=== PATIENT | female | born 1990 | race American Indian/Alaskan Native ===

== ENCOUNTER 2021-01-03 11:59 | Outpatient (CLI) | payer BC ==
[2021-01-04 13:26] LABS: SARS-CoV-2 PCR by NAA Not Detected (NotDetected)
== END 2021-01-03 12:00 | disposition home or self-care (01) ==
LOC: CSHLAB 11:59
PROVIDERS: ATTEND Obstetrics & Gynecology
DX: Z01.812 Encounter for preprocedural laboratory examination (principal); Z20.822 Contact with and (suspected) exposure to COVID-19
CPT/HCPCS: U0003; U0005

== ENCOUNTER 2021-01-04 16:14 | Inpatient (IN) | payer BC ==
[2021-01-05 11:29] VITALS: BMI 25.7
[2021-01-05 12:49] LABS: Hemoglobin 13.6 g/dL (12.0-15.5); Mean Corpuscular HGB CONC 34.2 g/dL (32.0-36.0); Mean Corpuscular Hemoglobin 28.8 pg (27.0-33.0); Mean Corpuscular Volume 84.1 fl (81.6-98.3); Mean Platelet Volume 10.7 fl (7.4-10.4); Platelet Count 259 10x3/uL (150-450); RBC Distribution Width 13.2 % (11.5-14.5); Red Blood Cell (RBC) Count 4.73 10x6/uL (3.90-5.03); White Blood Cell (WBC) Count 8.7 10x3/uL (3.5-10.5)
[2021-01-05 13:28] LABS: Hep B Surf Ag Non-Reactive S/CO (NonReactive); Syphilis Antibody Nonreactive (Nonreactive); Syphilis Antibody Index 0.04 S/CO (<1.00 Non-Reactive)
[2021-01-05] MEDS ORDERED: Misoprostol 100 MCG TAB ONE (13:31)
[2021-01-05 13:36] LABS: HBSAg Index 0.17 S/CO (0-0.99)
[2021-01-06] MEDS ORDERED: Fentanyl 2 mcg/Bup 0.1% Cadd 100 ML ONE ×2 (00:11→08:04)
[2021-01-06] MEDS ORDERED: Lactated Ringer's 500 ML IV PRN (01:15)
[2021-01-06] MEDS ORDERED: Acetaminophen 325 MG TAB PO PRN (01:15)
[2021-01-06] MEDS ORDERED: Fentanyl 2 mcg/Bupivacaine 0.1% Cassette 100 ML EPIDURAL SCH (01:15)
[2021-01-06] MEDS ORDERED: Communication Order-Pharmacy FS SCH (01:15)
[2021-01-06] MEDS ORDERED: Hydrocerin (Eucerin) Cream 120 gm Jar TOP PRN (01:15)
[2021-01-06] MEDS ORDERED: Promethazine HCl 25 MG/ML VIAL IM PRN (01:15)
[2021-01-06] MEDS ORDERED: Naloxone HCl 0.4 mg/ml Vial IVP PRN ×2 (01:15)
[2021-01-06] MEDS ORDERED: ePHEDrine Sulfate 50 MG/10 ML VIAL SLOW IVP PRN (01:15)
[2021-01-06] MEDS ORDERED: Ondansetron PF 4 MG/2 ML Vial IVP PRN ×2 (01:15→14:35)
[2021-01-06] MEDS ORDERED: diphenhydrAMINE 50 MG/ML VIAL IVP PRN (01:15)
[2021-01-06] MEDS ORDERED: Lidocaine 1% (PF) 30 ML VIAL SC PRN (05:25)
[2021-01-06] MEDS ORDERED: Acetaminophen/Codeine 30-300mg Tablet PO PRN (05:25)
[2021-01-06] MEDS ORDERED: Ibuprofen 800 MG TAB PO PRN (05:25)
[2021-01-06] MEDS ORDERED: NS w/ Oxytocin 30 units 500 ML IV SCH ×2 (05:30)
[2021-01-06] MEDS ORDERED: HYDROcodone/Acetaminophen 5/325 mg Tablet PO PRN (14:35)
[2021-01-06] MEDS ORDERED: Benzocaine-Menthol 82.5 ML CAN TOP PRN (14:35)
[2021-01-06] MEDS ORDERED: diphenhydrAMINE 25 MG CAP PO PRN (14:35)
[2021-01-06] MEDS ORDERED: hydrALAZINE 20 MG/ML VIAL SLOW IVP PRN (14:35)
[2021-01-06] MEDS ORDERED: Zolpidem Tartrate 5 MG TAB PO PRN (14:35)
[2021-01-06] MEDS ORDERED: Bisacodyl 10 MG SUPP PR PRN (14:35)
[2021-01-06] MEDS ORDERED: Milk Of Magnesia 30 ML UDCUP PO PRN (14:35)
[2021-01-06 17:06] LABS: HIV (1/2) Antibody/Antigen Non-Reactive (NonReactive)
[2021-01-06] MEDS: Misoprostol 100 MCG TAB VAG SCH ×4 (17:08→22:21)
[2021-01-06] MEDS: Ferrous Sulfate 325 MG TAB PO SCH (17:09)
[2021-01-06] MEDS: Docusate Calcium (SURFAK) 240 MG CAP PO SCH (21:16)
[2021-01-06] MEDS: Ibuprofen 800 MG TAB PO SCH (21:16)
[2021-01-07] MEDS: Misoprostol 100 MCG TAB VAG SCH ×4 (04:47→14:39)
[2021-01-07] MEDS: Ibuprofen 800 MG TAB PO SCH ×3 (05:37→21:02)
[2021-01-07 06:54] LABS: Hemoglobin 10.1 g/dL (12.0-15.5)
[2021-01-07] MEDS: Docusate Calcium (SURFAK) 240 MG CAP PO SCH ×2 (08:31→21:02)
[2021-01-07] MEDS: Ferrous Sulfate 325 MG TAB PO SCH ×2 (08:32→16:28)
[2021-01-07] MEDS ORDERED: Boostrix 0.5 ML (Tdap) VIAL IM ONE (14:35)
[2021-01-07] MEDS ORDERED: Lanolin Ointment 7 GM TUBE TOP PRN (22:13)
[2021-01-08] MEDS: Misoprostol 100 MCG TAB VAG SCH ×3 (02:47→07:44)
[2021-01-08] MEDS: Ibuprofen 800 MG TAB PO SCH (05:18)
[2021-01-08 07:39] VITALS: BP 111/69; TEMP 97.9
[2021-01-08] MEDS: Ferrous Sulfate 325 MG TAB PO SCH (07:44)
[2021-01-08] MEDS: Docusate Calcium (SURFAK) 240 MG CAP PO SCH (09:21)
== END 2021-01-08 09:20 | disposition home or self-care (01) | DRG 807 ==
LOC: CSHLD 01-05 10:12 → CSHPED 01-06 16:45
PROVIDERS: ADMIT Obstetrics & Gynecology; ATTEND Obstetrics & Gynecology
PROC: 10E0XZZ Delivery of Products of Conception, External Approach (ICD-10-PCS; principal; 2021-01-06)
PROC: 0KQM0ZZ Repair Perineum Muscle, Open Approach (ICD-10-PCS; 2021-01-06)
PROC: 10907ZC Drainage of Amniotic Fluid, Therapeutic from Products of Conception, Via Natural or Artificial Opening (ICD-10-PCS; 2021-01-06)
PROC: 30233S1 Transfusion of Nonautologous Globulin into Peripheral Vein, Percutaneous Approach (ICD-10-PCS; 2021-01-07)
DX: O70.1 Second degree perineal laceration during delivery (principal); Z37.0 Single live birth; Z3A.39 39 weeks gestation of pregnancy
CPT/HCPCS: 36415; 51702; 85014; 85018; 85027; 85461; 86780; 86850; 86900; 86901; 87340; 87389; 90384; 96372; J2405; J2590; U0003; U0005